=== PATIENT | male | born 1960 | race Caucasian/White ===

== ENCOUNTER 2018-01-21 00:27 | Inpatient (IN) | payer OTHER ==
[2018-01-21] MEDS ORDERED: ACETAMINOPHEN 1000 MG/100 ML VIAL (NON FORMULARY) IVPB ONE (00:37)
[2018-01-21] MEDS ORDERED: SODIUM CHLORIDE 1,000 ML IV STA (00:37)
[2018-01-21] MEDS ORDERED: FAMOTIDINE 20 MG/50 ML IVPB 20 MG/50 ML MG IVPB ONE ×2 (00:37→01:03)
[2018-01-21] MEDS ORDERED: MAG HYDROX/AL HYDROX/SIMETH 30 ML UNIT-DOSE CUP PO ONE (00:37)
--- NOTE | 2018-01-21 00:44 | PDOC ---
History of Present Illness - General Chief Complaint: Pain, Acute Stated Complaint: ABDOMINAL PAIN Time Seen by Provider: 01/21/18 00:28 - History of Present Illness Initial Comments: 01/21/18 00:38 57 M with h/o BPH presenting to ED with abdominal pain x 3 days. Pt states that 3 nights ago, he ate a meal with a lot of hot sauce. Afterwards, he experienced severe pain in his epigastric region. This lasted about an hour and resolved spontaneously. The pain did not radiate and was not associated with any nausea or vomiting. Pt reports normal BMs without BRBPR or dark stools. Pt states that since the initial episode, he has been having daily episodes of epigastric pain , typically after eating. The pain has been mild and responds well to zantac. However, tonight, pt again experienced severe pain after eating that has persisted for 4 hours. Past History - Past Medical History Allergies/Adverse Reactions: Allergies Allergy/AdvReac Type Severity Reaction Status Date / Time No Known Allergies Allergy Verified 01/21/18 00:29 Home Medications: Ambulatory Orders Paroxetine HCl [Paxil] 40 mg PO DAILY 01/21/18 COPD: No Psychiatric Problems: Yes Other medical history: PROSTATE - Suicide/Smoking/Psychosocial Hx Smoking History: Current some day smoker Have you smoked in the past 12 months: Yes Information on smoking cessation initiated: Yes 'Breaking Loose' booklet given: 01/21/18 Hx Alcohol Use: Yes Drug/Substance Use Hx: No Substance Use Type: None Review of Systems - Review of Systems Comments:: 01/21/18 00:41 "GENERAL/CONSTITUTIONAL: No fever or chills. No weakness. HEAD, EYES, EARS, NOSE AND THROAT: No change in vision. No ear pain or discharge. No sore throat. CARDIOVASCULAR: No chest pain, no shortness of breath, no loss of consciousness RESPIRATORY: No cough, wheezing, or hemoptysis. GASTROINTESTINAL: + epigastric pain, No nausea, vomiting, diarrhea or constipation. GENITOURINARY: No dysuria, frequency, or change in urination. MUSCULOSKELETAL: No joint or muscle swelling or pain. No neck or back pain. SKIN: No rash NEUROLOGIC: No vertigo, no change in strength/sensation. ENDOCRINE: No increased thirst. No abnormal weight change. HEMATOLOGIC/LYMPHATIC: No anemia, easy bleeding, or history of blood clots. ALLERGIC/IMMUNOLOGIC: No hives or skin allergy. *Physical Exam - Vital Signs Last Vital Signs Temp Pulse Resp BP Pulse Ox 97.9 F 75 16 157/100 100 01/21/18 00:31 01/21/18 00:31 01/21/18 00:31 01/21/18 00:31 01/21/18 00:31 - Physical Exam Comments: 01/21/18 00:41 GENERAL: Awake, alert, and fully oriented, in no acute distress. HEAD: No signs of trauma EYES: PERRLA, EOMI, sclera anicteric, conjunctiva clear ENT: Auricles normal inspection, hearing grossly normal, nares patent, oropharynx clear without exudates. Moist mucosa NECK: Nontender, no stepoffs, Normal ROM, supple, no lymphadenopathy, JVD, or masses LUNGS: Breath sounds equal, clear to auscultation bilaterally. No wheezes, and no crackles HEART: Regular rate and rhythm, normal S1 and S2, no murmurs, rubs or gallops ABDOMEN: + RLQ TTP, + mild epigastric TTP. No guarding, no rebound. No masses EXTREMITIES: Normal range of motion, no edema. No clubbing or cyanosis. No cords, erythema, or tenderness NEUROLOGICAL: Cranial nerves II through XII intact. 5/5 strength and sensation in all extremities, Normal speech, normal gait, normal cerebellar function SKIN: Warm, Dry, normal turgor, no rashes or lesions noted. ED Treatment Course - LABORATORY CBC & Chemistry Diagram: 01/21/18 00:40 01/21/18 00:40 Medical Decision Making - Medical Decision Making 01/21/18 00:42 57 M with intermittent epigastric pain x 3 days, associated with eating. Possible gastritis vs PUD. However, pt also tender in RLQ, suspicious for possible appy. No CP/SOB to suggest ACS. No abdominal distention/vomiting/ nausea to suggest obstructive process. - Labs, lipase - CTAP - GI cocktail 01/21/18 03:51 CT shows possible early acute appy Surgery consulted Pt made NPO Zosyn ordered 01/21/18 04:[address] William, who accepts pt to his service. Will send pt to [facility] Pt informed of results and is amenable to plan. *DC/Admit/Observation/Transfer Diagnosis at time of Disposition: Appendicitis - Discharge Dispostion Condition at time of disposition: Stable Decision to Admit order: Yes - Referrals - Patient Instructions - Post Discharge Activity - Attestations Physician Attestion: 01/21/18 03:53 I, Dr. Demetrius Woody MD, attest that this document has been prepared under my direction and personally reviewed by me in its entirety. I further attest, that it accurately reflects all work, treatment, procedures and medical decision -making performed by me.
[2018-01-21] MEDS ORDERED: MAG HYDROX/AL HYDROX/SIMETH 30 ML UNIT-DOSE CUP ONE (01:03)
[2018-01-21] MEDS ORDERED: ACETAMINOPHEN INJECTION 100 ML IVPB ONE (01:03)
[2018-01-21 01:14] LABS: BASO % 0.5 % (0-2.0); EOS % 1.3 % (0-4.5); HEMATOCRIT 44.1 % (35.4-49); LYMPH % 9.3 % (8-40); MCH 29.5 pg (25.7-33.7); MCHC 33.9 g/dl (32.0-35.9); MEAN CELL VOLUME 86.9 fl (80-96); MEAN PLT VOLUME 8.2 fl (7.5-11.1); MONO % 4.8 % (3.8-10.2); NEUT % 84.1 % (42.8-82.8); PLATELET COUNT 272 K/MM3 (134-434); RBC 5.08 M/mm3 (4.00-5.60); RDW 13.6 % (11.9-15.9); WHITE BLOOD COUNT 12.3 K/mm3 (4.0-10.0)
[2018-01-21 01:17] LABS: URINE APPEARANCE CLEAR; URINE BILIRUBIN NEGATIVE (<2.0 mg/dL); URINE COLOR STRAW; URINE GLUCOSE (UA) NEGATIVE (NEGATIVE); URINE KETONE NEGATIVE (NEGATIVE); URINE LEUK ESTERASE NEGATIVE (NEGATIVE); URINE NITRITE NEGATIVE (NEGATIVE); URINE PROTEIN NEGATIVE (NEGATIVE); URINE UROBILINOGEN NEGATIVE mg/dL (0.2-1.0)
[2018-01-21 01:55] LABS: ALBUMIN 4.1 g/dl (3.4-5.0); ALK PHOS 132 U/L (45-117); ANION GAP 7 MMOL/L (8-16); BILIRUBIN,TOTAL 0.3 mg/dL (0.2-1); BLOOD UREA NITROGEN 21 mg/dL (7-18); CALCIUM 8.8 mg/dL (8.5-10.1); CHLORIDE 104 mmol/L (98-107); CO2 28 mmol/L (21-32); CREATININE 0.9 mg/dL (0.55-1.3); GLUCOSE,RANDOM 112 mg/dL (74-106); LIPASE 286 U/L (73-393); POTASSIUM 4.2 mmol/L (3.5-5.1); SGOT/AST 28 U/L (15-37); SGPT/ALT 49 U/L (13-61); SODIUM 139 mmol/L (136-145); TOT PROT 7.8 g/dl (6.4-8.2)
[2018-01-21] MEDS ORDERED: PIPERACILLIN/TAZOBACTAM 4.5 GM VIAL IVPB ONE (04:02)
[2018-01-21] MEDS ORDERED: PIPERACILLIN/TAZOB 4.5 GM 4.5 GM/100 ML BAG IVPB ONE (04:02)
[2018-01-21] MEDS ORDERED: morphine SULFATE 4 MG/ML VIAL IVPUSH PRN ×2 (04:23→15:07)
[2018-01-21] MEDS ORDERED: ONDANSETRON 4 MG/2 ML VIAL IVPUSH PRN ×3 (04:23→15:07)
--- NOTE | 2018-01-21 04:23 | HP ---
Admitting History and Physical - Admission Chief Complaint: abominal pain History of Present Illness: 57yo male PMH BPH presenting to ED with abdominal pain x 3 days. Pt states that 3 nights ago, he ate a meal with a lot of hot sauce. Afterwards, he experienced severe pain in his epigastric region. This lasted about an hour and resolved spontaneously. The pain did not radiate and was not associated with any nausea or vomiting. Pt reports normal BMs without BRBPR or dark stools. Pt states that since the initial episode, he has been having daily episodes of epigastric pain , typically after eating. The pain has been mild and responds well to zantac. However, tonight, pt again experienced severe pain after eating that has persisted for 4 hours. History Source: Patient, Medical Record Limitations to Obtaining History: No Limitations - Past Medical History Renal/: Yes: BPH - Smoking History Smoking history: Current some day smoker Have you smoked in the past 12 months: Yes - Alcohol/Substance Use Hx Alcohol Use: Yes Home Medications - Allergies Allergies/Adverse Reactions: Allergies Allergy/AdvReac Type Severity Reaction Status Date / Time No Known Allergies Allergy Verified 01/21/18 00:29 - Home Medications Home Medications: Ambulatory Orders Paroxetine HCl [Paxil] 40 mg PO DAILY 01/21/18 Review of Systems - Review of Systems Constitutional: denies: Chills, Fever Eyes: denies: Blind Spots, Recent Change in Vision HENT: denies: Difficult Swallowing, Ocular Prosthesis Neck: denies: Decreased ROM, Lumps Cardiovascular: denies: Chest Pain, Palpitations Respiratory: denies: Cough, Snoring Gastrointestinal: reports: Abdominal Pain, Indigestion. denies: Bloating, Constipation Genitourinary: denies: Discharge, Dysuria Breasts: reports: No Symptoms Reported. denies: Lumps, Pain Musculoskeletal: denies: Muscle Cramps, Muscle Weakness Integumentary: denies: Lump, Pruritis, Rash Neurological: denies: Change in LOC, Seizure, Syncope Endocrine: denies: Unexplained Weight Gain, Unexplained Weight Loss Hematology/Lymphatic: denies: Easily Bruised, Excessive Bleeding Psychiatric: denies: Anxiety, Depression Physical Examination Vital Signs: Vital Signs Temperature 97.6 F 01/21/18 04:15 Pulse Rate 60 01/21/18 04:15 Respiratory Rate 16 01/21/18 04:15 Blood Pressure 130/87 01/21/18 04:15 O2 Sat by Pulse Oximetry (%) 97 01/21/18 04:15 Vital Signs Period Temp Pulse Resp BP Sys/Adams Pulse Ox Last 24 Hr 97.6 F-97.9 F 60-75 16-20 130-157/77-100 97-100 Constitutional: Yes: Well Nourished, No Distress, Calm Eyes: Yes: Conjunctiva Clear, EOM Intact HENT: Yes: Atraumatic, Normocephalic Neck: Yes: Supple, Trachea Midline Cardiovascular: Yes: Regular Rate and Rhythm, S1, S2 Respiratory: Yes: Regular, CTA Bilaterally Gastrointestinal: Yes: Normal Bowel Sounds, Soft, Abdomen, Obese, Tenderness. No: Distention Renal/: No: CVA Tenderness - Left, CVA Tenderness - Right Musculoskeletal: No: Muscle Pain, Muscle Weakness Extremities: No: Cool, Cyanosis Edema: No Peripheral Pulses WNL: Yes Peripheral Pulses: Left Radial: 2+, Right Radial: 2+, Left Doralis Pedis: 2+, Right Dorsalis Pedis: 2+ Integumentary: No: Jaundice, Pressure Ulcer, Rash Wound/Incision: Yes: Other (RUQ subcotsal well healed) Neurological: No: Alert, Oriented, Babinski negative Psychiatric: No: Alert, Oriented Labs: CBC, BMP 01/21/18 00:40 01/21/18 00:40 Imaging - Results Cat Scan: Report Reviewed, Image Reviewed (inflamed appendix) Problem List - Problems (1) Acute appendicitis with localized peritonitis Assessment/Plan: 57yo male with Acute appendicitis with localized peritonitis NPO and IVF hydration IV antibiotics Discussed with patient risks, benefits and alternatives of laparoscopic possible open appendectomy, including but not limited to bleeding, infection, injury to adjacent structures, leak or injury, intraabdominal abscess, incisional hernia, need for further procedures, ; alternatives include antibiotics, delayed or no surgery - risks of this include failure of nonoperative therapy, perforation, sepsis, recurrence, . Patient desires to proceed with operation - will take to OR for above. Informed consent signed for same. Code(s): K35.30 - ACUTE APPENDICITIS WITH LOC PERITONITIS, W/O PERF OR GANGR Qualifiers: Appendicitis gangrene presence: without gangrene Appendicitis perforation presence: without perforation Appendicitis abscess presence: without abscess Qualified Code(s): K35.30 - Acute appendicitis with localized peritonitis, without perforation or gangrene (2) Abdominal pain in male Code(s): R10.9 - UNSPECIFIED ABDOMINAL PAIN (3) BPH (benign prostatic hyperplasia) Code(s): N40.0 - BENIGN PROSTATIC HYPERPLASIA WITHOUT LOWER URINRY TRACT SYMP (4) Obesity (BMI 30.0-34.9) Code(s): E66.9 - OBESITY, UNSPECIFIED
[2018-01-21] MEDS ORDERED: LACTATED RINGERS SOLUTION 1,000 ML IV SCH ×2 (04:30→13:00)
[2018-01-21 06:36] VITALS: BMI 31.4
[2018-01-21 07:40] LABS: INR 0.94 (0.83-1.09); PROTHROMBIN TIME (PATIENT) 11.1 SEC (9.7-13.0)
[2018-01-21] MEDS ORDERED: PT OWN MED DRAWER 7, Y5N ONE (09:44)
--- NOTE | 2018-01-21 09:56 | EKG ---
Test Reason : Blood Pressure : / mmHG Vent. Rate : 056 BPM Atrial Rate : 056 BPM P-R Int : 182 ms QRS Dur : 104 ms QT Int : 462 ms P-R-T Axes : 036 -07 -03 degrees QTc Int : 445 ms SINUS BRADYCARDIA MINIMAL VOLTAGE CRITERIA FOR LVH, MAY BE NORMAL VARIANT NONSPECIFIC T WAVE ABNORMALITY ABNORMAL ECG NO PREVIOUS ECGS AVAILABLE Confirmed by MARLEEN ESPINAL, KVNG ([id number]) on 01/21/2018 9:55:37 AM Referred By: MD PERDOMO Confirmed By:KVNG HAWLEY MD
--- NOTE | 2018-01-21 11:33 | OP ---
Operative Note - Note: Operative Date: 01/21/18 Pre-Operative Diagnosis: acute appendicitis with localized peritonitis Operation: laparoscopic appendectomy Findings: inflamed appendix, all count correct. Post-Operative Diagnosis: Same as Pre-op Surgeon: Alok William Anesthesiologist/PLANT GUARD: Chikis Barker Anesthesia: General, Local Estimated Blood Loss (mls): 2 Fluid Volume Replaced (mls): 600 (crystallloid ) Operative Report Dictated: Yes
[2018-01-21] MEDS ORDERED: fentaNYL CITRATE 250 MCG/5 ML VIAL ONE (13:22)
[2018-01-21] MEDS ORDERED: PROPOFOL 20 ML ONE ×2 (13:22)
[2018-01-21] MEDS ORDERED: MIDAZOLAM HCL 2 MG/2 ML SINGLE DOSE VIAL ONE (13:22)
[2018-01-21] MEDS ORDERED: ROCURONIUM BROMIDE 50 MG/5 ML VIAL ONE (13:23)
[2018-01-21] MEDS ORDERED: ceFAZolin SODIUM 1 GM VIAL ONE (13:24)
[2018-01-21] MEDS ORDERED: DEXAMETHASONE SOD PHOSPHATE 4 MG/1 ML VIAL ONE (13:24)
[2018-01-21] MEDS ORDERED: LIDOCAINE HCL/PF 2% SDV 5ML VIAL ONE (13:24)
[2018-01-21] MEDS ORDERED: SODIUM CHLORIDE 0.9% P/F 10 ML VIAL IJ ONE (13:25)
[2018-01-21] MEDS ORDERED: DESFLURANE GAS 240 ML BOTTLE IH ONE (13:30)
[2018-01-21] MEDS ORDERED: BUPIVACAINE HCL/PF 0.5% (5MG/ML) 10 ML VIAL IJ ONE (14:06)
[2018-01-21] MEDS ORDERED: NEOSTIGMINE METHYLSULFATE 0.5 MG/ML - 10 ML MDV ONE (14:17)
[2018-01-21] MEDS ORDERED: KETOROLAC TROMETHAMINE 30 MG/1 ML VIAL IVPUSH ONE ×2 (14:47→15:07)
[2018-01-21] MEDS ORDERED: KETOROLAC TROMETHAMINE 30 MG/1 ML VIAL ONE (14:55)
[2018-01-21] MEDS: LACTATED RINGERS SOLUTION 1,000 ML IV SCH ×2 (16:30→16:41)
[2018-01-21] MEDS: PARoxetine HCL 10 MG TABLET (FP) PO SCH (18:20)
[2018-01-21] MEDS: LACTOBACILLUS ACIDOPHILUS 1 TABLET PO SCH (18:20)
--- NOTE | 2018-01-22 01:20 | DS ---
Physical Examination Vital Signs: Vital Signs Temperature 98.4 F 01/21/18 22:00 Pulse Rate 91 H 01/21/18 22:00 Respiratory Rate 18 01/21/18 22:00 Blood Pressure 114/66 01/21/18 22:00 O2 Sat by Pulse Oximetry (%) 99 01/21/18 21:00 Findings/Remarks: stable overnight. Afebrile. tolerating diet and voiding. Constitutional: Yes: Well Nourished, No Distress, Calm Eyes: Yes: Conjunctiva Clear, EOM Intact HENT: Yes: Atraumatic, Normocephalic Neck: Yes: Supple, Trachea Midline Cardiovascular: Yes: Regular Rate and Rhythm, S1, S2 Respiratory: Yes: Regular, CTA Bilaterally Gastrointestinal: Yes: Normal Bowel Sounds, Soft, Abdomen, Obese, Tenderness. No: Vomiting Renal/: No: CVA Tenderness - Left, CVA Tenderness - Right Breast(s): No: Mass Musculoskeletal: No: Muscle Pain, Muscle Weakness Extremities: No: Cool, Cyanosis Edema: No Peripheral Pulses WNL: Yes Wound/Incision: Yes: Clean/Dry, Well Approximated, Open to air Neurological: Yes: Alert, Oriented. No: Babinski positive Psychiatric: Yes: Alert, Oriented Labs: CBC, BMP 01/21/18 00:40 01/21/18 00:40 Discharge Summary Reason For Visit: ABDOMINAL PAIN Current Active Problems Abdominal pain in male (Acute) Acute appendicitis with localized peritonitis (Acute) Appendicitis (Acute) BPH (benign prostatic hyperplasia) (Acute) Obesity (BMI 30.0-34.9) (Acute) Procedures: Principal: laparoscopic appendectomy Hospital Course: admitted from ED for urgent operative procedure, uneventful procedure. stable for discharge home Condition: Improved - Instructions Diet, Activity, Other Instructions: Postoperative instructions: You had a laparoscopic appendectomy on 01/21/[address] Alok William of [facility]. Activity: Resume your usual activities gradually, but no heavy exertion or lifting more than 10-15 pounds for 1 month. Remove dressings 48 hours after surgery; sticky tapes underneath will fall off by themselves. You may shower daily starting then, just pat the incision areas dry. No bath or swimming until skin incisions have healed. Eat lightly at first, but advance to your usual diet as tolerated. Pain: For pain, you may use and alternate Tylenol (acetaminophen) 1-2 pills and/ or ibuprofen 200 mg (1-3 pills) every 6 hours each as needed; this means that you can take one OR the other at 3-hour intervals. If you are prescribed a Tylenol/narcotic combination for severe pain, use it instead of plain Tylenol as needed and switch back when your pain starts decreasing. Do not take more than 4000mg of acetaminophen in a day. Take medications as prescribed or indicated on the labeling. Follow-up: Call Dr. William' office at [phone] to make your postop appointment (Friday in approximately 2 weeks after surgery). Clinic is held in the [facility] on the first floor of [facility]. Call the office if you have: * increasing pain not responsive to pain medication * fever of 101F or higher * vomiting * unusual or increasing bleeding or drainage from wounds * increasing redness or swelling at wound sites * inability to urinate Also, see your primary medical doctor within 1-2 weeks. Disposition: HOME - Home Medications Comprehensive Discharge Medication List: Ambulatory Orders Paroxetine HCl [Paxil] 40 mg PO DAILY 01/21/18
[2018-01-22] MEDS: LACTATED RINGERS SOLUTION 1,000 ML IV SCH (02:37)
[2018-01-22] MEDS ORDERED: PT OWN MED DRAWER 7, Y5N ONE (05:10)
[2018-01-22 06:20] VITALS: PULSE 66
[2018-01-22 07:27] LABS: BASO % 0.1 % (0-2.0); HEMATOCRIT 40.4 % (35.4-49); HEMOGLOBIN 13.2 GM/dL (11.7-16.9); LYMPH % 11.8 % (8-40); MCH 28.2 pg (25.7-33.7); MCHC 32.7 g/dl (32.0-35.9); MEAN CELL VOLUME 86.4 fl (80-96); MEAN PLT VOLUME 7.7 fl (7.5-11.1); MONO % 4.5 % (3.8-10.2); NEUT % 83.6 % (42.8-82.8); PLATELET COUNT 234 K/MM3 (134-434); RBC 4.68 M/mm3 (4.00-5.60); RDW 13.6 % (11.9-15.9); WHITE BLOOD COUNT 8.5 K/mm3 (4.0-10.0)
[2018-01-22 07:50] LABS: ALBUMIN 3.4 g/dl (3.4-5.0); ALK PHOS 97 U/L (45-117); ANION GAP 8 MMOL/L (8-16); BILIRUBIN,TOTAL 0.4 mg/dL (0.2-1); BLOOD UREA NITROGEN 14 mg/dL (7-18); CALCIUM 8.6 mg/dL (8.5-10.1); CHLORIDE 104 mmol/L (98-107); CO2 29 mmol/L (21-32); CREATININE 0.9 mg/dL (0.55-1.3); GLUCOSE,RANDOM 119 mg/dL (74-106); POTASSIUM 4.4 mmol/L (3.5-5.1); SGOT/AST 17 U/L (15-37); SGPT/ALT 31 U/L (13-61); SODIUM 140 mmol/L (136-145); TOT PROT 6.8 g/dl (6.4-8.2)
[2018-01-22] MEDS: PARoxetine HCL 10 MG TABLET (FP) PO SCH (09:35)
[2018-01-22] MEDS: LACTOBACILLUS ACIDOPHILUS 1 TABLET PO SCH (09:35)
[2018-01-22 11:02] VITALS: BP 138/77; TEMP 98
--- NOTE | 2018-01-23 16:07 | PATH ---
Surgical Pathology Report Patient Name: WILI RAYGOZA Med. Rec. #: [id number] /Age/Gender: 1960 (Age: 57) / M Account: [id number] Location: [facility] MED/SURG Taken: 01/21/2018 Received: 01/22/2018 Reported: 01/23/2018 Physicians: Alok William M.D. Specimen(s) Received APPENDIX Clinical History Abdominal pain Final Diagnosis APPENDIX, LAPAROSCOPIC APPENDECTOMY: ACUTE APPENDICITIS WITH PERIAPPENDICITIS. Electronically Signed Kasey Gillis M.D. Gross Description Received in formalin, labeled "appendix," is a 4 cm. in length vermiform appendix with a stapled margin of resection and abundant attached fat. The serosa is garcia-pink and smooth. Sectioning reveals an unremarkable lumen. The wall of the appendix averages 0.1 cm. in thickness. Marketing Teacher sections are submitted in one cassette. /01/22/2018 saudi01/22/2018
== END 2018-01-22 12:47 | disposition home or self-care (01) | DRG 343 ==
LOC: FER 00:27 → J7W 04:40
PROC: 0DTJ4ZZ Resection of Appendix, Percutaneous Endoscopic Approach (ICD-10-PCS; principal; 2018-01-21 16:00)
DX: K35.30 Acute appendicitis with localized peritonitis, without perforation or gangrene (principal); N40.0 Benign prostatic hyperplasia without lower urinary tract symptoms; F17.210 Nicotine dependence, cigarettes, uncomplicated; E66.9 Obesity, unspecified; Z68.31 Body mass index [BMI] 31.0-31.9, adult
CPT/HCPCS: 36415; 74177-TC; 80053; 81003; 82550; 82553; 83690; 84484; 85025; 85610; 86850; 86900; 86901; 88304-TC; 93005; 94760; 99285-25; J0131; J7030

== ENCOUNTER 2020-09-13 05:14 | Day surgery (SDC) | payer OTHER ==
[2020-09-12 15:42] VITALS: BMI 32.8
[2020-09-13] MEDS ORDERED: BUPIVACAINE HCL/PF 0.5% (5MG/ML) 10 ML VIAL ONE (12:23)
[2020-09-13] MEDS ORDERED: PROPOFOL 20 ML ONE (13:53)
[2020-09-13] MEDS ORDERED: ONDANSETRON 4 MG/2 ML VIAL ONE (13:53)
[2020-09-13] MEDS ORDERED: DEXAMETHASONE SOD PHOSPHATE 4 MG/1 ML VIAL ONE (13:53)
[2020-09-13] MEDS ORDERED: MIDAZOLAM HCL 2 MG/2 ML SINGLE DOSE VIAL ONE (13:53)
[2020-09-13] MEDS ORDERED: LIDOCAINE HCL 1%, 10 MG/ML (20ML VIAL) ONE (14:09)
[2020-09-13] MEDS ORDERED: ceFAZolin SODIUM 1 GM VIAL ONE (14:10)
[2020-09-13] MEDS ORDERED: BUPIVACAINE HCL/PF 0.5% (5MG/ML) 10 ML VIAL NR ONE ×2 (14:31)
[2020-09-13] MEDS ORDERED: LIDOCAINE HCL 1%, 10 MG/ML (20ML VIAL) NR ONE ×2 (14:31)
[2020-09-13] MEDS ORDERED: KETOROLAC TROMETHAMINE 30 MG/1 ML VIAL ONE (15:05)
[2020-09-13 17:49] VITALS: BP 122/71; PULSE 74; TEMP 98.3
== END 2020-09-13 17:50 | disposition home or self-care (01) ==
LOC: JASU-SURG 05:14
PROVIDERS: ATTEND Surgery
PROC: 0WQF0ZZ Repair Abdominal Wall, Open Approach (ICD-10-PCS; principal; 2020-09-13 13:30)
DX: K43.2 Incisional hernia without obstruction or gangrene (principal)
CPT/HCPCS: 88302-TC; 94760

== ENCOUNTER 2022-11-06 20:15 | Emergency (ER) | payer OTHER ==
[2022-11-06 20:27] VITALS: BP 157/83; PULSE 72; RESP 18; TEMP 98; BMI 30.7
== END 2022-11-07 | disposition home or self-care (01) ==
LOC: JERFT 20:15 → JER 20:15 → JERFT 11-07
DX: S60.455A Superficial foreign body of left ring finger, initial encounter (principal); R22.32 Localized swelling, mass and lump, left upper limb; W45.8XXA Other foreign body or object entering through skin, initial encounter
CPT/HCPCS: 99282-25